=== PATIENT | male | born 1990 | race Caucasian/White ===

== ENCOUNTER 2023-11-21 13:43 | Emergency (ER) | payer MEDICAID ==
[~2023-11-21] VITALS: Ht 170.2 cm; Wt 68.6 kg
[2023-11-21 13:52] VITALS: BP 127/82; TEMP 98.9; O2SAT 99
[2023-11-21 13:56] VITALS: PULSE 89; RESP 16
== END 2023-11-21 15:00 | disposition left against medical advice (07) ==
LOC: ER 13:43
DX: M25.551 Pain in right hip (principal); Z53.21 Procedure and treatment not carried out due to patient leaving prior to being seen by health care provider
CPT/HCPCS: 99281